=== PATIENT | female | born 1940 | race Caucasian/White ===

== ENCOUNTER → 2016-11-05 | Day surgery (SDC) | payer OTHER ==
--- NOTE | 2016-11-08 14:56 | PATH ---
Surgical Pathology Report Patient Name: MICHELE HANSEN [facility]. Rec. #: [id number] /Age/Gender: 1940 (Age: 76) / F Account: [id number] Location: Taken: 11/05/2016 Received: 11/05/2016 Reported: 11/08/2016 Physicians: Ash Miller M.D. 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 Electronically Signed Margaux Koch M.D. Gross Description Received in formalin labeled "left breast biopsy 1 N 2-3," is a 2.0 x 1.3 x 0.3 cm aggregate of multiple white-yellow, irregular to cylindrical portions of fibroadipose tissue. The formalin is filtered and the specimen is entirely submitted in one cassette. Time to formalin fixation: < 1 minute Total formalin fixation time: Approximately 6 hours. /11/05/2016 saudi11/05/2016
--- NOTE | 2016-11-10 08:54 | OP ---
DATE OF OPERATION: 11/05/2016 PREOPERATIVE DIAGNOSIS: Left breast mass, 1 o'clock, 2-3 cm from the nipple. POSTOPERATIVE DIAGNOSIS: Left breast mass, 1 o'clock, 2-3 cm from the nipple. PROCEDURE: Left ultrasound-guided core biopsy with clip placement. ANESTHESIA: Local. ATTENDING SURGEON: David Contreras MD ESTIMATED BLOOD LOSS: Minimal. COMPLICATIONS: None. DESCRIPTION OF PROCEDURE: Patient was made aware of the risks and benefits of the procedure and consented. She was placed in the supine position. Under sterile conditions with 1% Lidocaine for local anesthesia, a small sanjeev was made in the skin. Using a 10-guage suction biopsy device through an inferolateral approach and ultrasound guidance, multiple biopsies were obtained and submitted to Pathology. Likewise, under ultrasound guidance, a bow tie clip was placed into the biopsy region. Well tolerated by patient. Steri-Strip and sterile bandage were applied. Will contact her with the results. Ash [id number]
== END | disposition home or self-care (01) ==
LOC: FRADUS-SUR 13:29
PROVIDERS: ATTEND Surgery
PROC: 0HBU3ZX Excision of Left Breast, Percutaneous Approach, Diagnostic (ICD-10-PCS; principal; 2016-11-05)
DX: N60.32 Fibrosclerosis of left breast (principal); N63 Unspecified lump in breast; N60.82 Other benign mammary dysplasias of left breast; N60.12 Diffuse cystic mastopathy of left breast
CPT/HCPCS: 19083; 87899; 88305-TC; A4648